=== PATIENT | female | born 1955 | race Caucasian/White ===

== ENCOUNTER → 2020-10-01 | Outpatient (CLI) | payer OTHER ==
[~2020-10-01] MED LIST: AUGMENTIN 875-1 EACH PO; CLEOCIN HCL300 MG PO; GABAPENTIN400 MG PO; GLUCOTROL 10 MG10 MG PO; HUMALOG100 UNIT/2 SQ; JARDIANCE25 MG PO; LASIX20 MG PO; LIPITOR TAB 1010 MG PO; LISINOPRIL20 MG PO; SYNTHROID25 MCG PO; TOUJEO MAX300 UNIT/1 SQ; VICTOZA 1818 MG/3 ML SQ
== END ==
LOC: RAD 13:28
DX: M53.3 Sacrococcygeal disorders, not elsewhere classified (principal); M47.816 Spondylosis without myelopathy or radiculopathy, lumbar region; M85.88 Other specified disorders of bone density and structure, other site
CPT/HCPCS: 72110; 72220